=== PATIENT | male | born 1960 | race Caucasian/White ===

== ENCOUNTER 2017-11-01 18:49 | Emergency (ER) | payer OTHER ==
[2017-11-01 19:07] VITALS: BP 119/79; PULSE 91; RESP 16; TEMP 98.4; O2SAT 98
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
== END 2017-11-01 21:38 | disposition home or self-care (01) ==
LOC: H.ER 18:49
DX: M54.2 Cervicalgia (principal); V43.52XA Car driver injured in collision with other type car in traffic accident, initial encounter; Y92.410 Unspecified street and highway as the place of occurrence of the external cause